=== PATIENT | male | born 1995 | race Caucasian/White ===

== ENCOUNTER 2019-03-25 03:01 | Inpatient (IN) | payer SELFPAY ==
[~2019-03-25] VITALS: Ht 165.1 cm; Wt 59.0 kg
[2019-03-25] MEDS ORDERED: NALOXONE HCL 1 MG/ML 2ML VIAL ONE (03:05)
[2019-03-25] MEDS ORDERED: ALBUTEROL (0.083%) 2.5MG/3ML NEB ONE (03:11)
[2019-03-25] MEDS ORDERED: FLUMAZENIL 0.1 MG/ML 5ML VIAL IV ONE (03:11)
[2019-03-25] MEDS ORDERED: IPRATROPIUM BROMIDE (0.02%) 0.5MG/2.5ML NEB ONE (03:12)
[2019-03-25] MEDS ORDERED: ALBUTEROL (0.083%) 2.5MG/3ML NEB HHN STA (03:16)
[2019-03-25] MEDS ORDERED: IPRATROPIUM BROMIDE (0.02%) 0.5MG/2.5ML NEB HHN STA (03:16)
[2019-03-25] MEDS ORDERED: SODIUM CHLORIDE 0.9% 1,000 ML IV ONE (03:16)
[2019-03-25] MEDS ORDERED: NALOXONE HCL 0.4 MG/ML 1ML VIAL IV PRN (03:30)
[2019-03-25] MEDS ORDERED: NALOXONE HCL 1 MG/ML 2ML VIAL IV ONE (03:30)
[2019-03-25 03:33] LABS: CHLORIDE 98 mEq/L (98-107)
[2019-03-25 03:39] LABS: BASOPHILS % 0.3 % (0.0-2.0); EOSINOPHILS % 2.4 % (0.0-5.0); ETHANOL BLOOD < 10 mg/dL; HEMATOCRIT. 42.9 % (42.0-52.0); LYMPHOCYTES % 44.3 % (20.0-50.0); MEAN CORPUSCULAR HEMOGLOBIN 30.2 pg (28.0-32.0); MEAN CORPUSCULAR VOLUME 92.5 fL (80.0-94.0); MEAN PLATELET VOLUME 8.4 fl (7.4-10.4); MONOCYTES % 4.1 % (2.0-8.0); NEUTROPHILS % 48.9 % (40.0-76.0); PLATELET 281 x1000/uL (130-400); RED BLOOD CELL COUNT 4.63 mill/uL (4.7-6.1); RED CELL DISTRIBUTION WIDTH 13.5 % (11.6-14.6)
[2019-03-25 03:40] LABS: BETA HYDROXYBUTYRATE 0.1 mMol/L (0.0-0.3)
[2019-03-25 03:52] LABS: INR 1.1; PARTIAL THROMBOPLASTIN TIME 24.3 sec (23.4-31.0)
[2019-03-25 03:56] LABS: CLARITY URINE CLEAR (CLEAR); COLOR URINE YELLOW (YELLOW); KETONES URINE NEGATIVE (NEGATIVE); LEUKOCYTE ESTERASE URINE NEGATIVE (NEGATIVE); NITRITE URINE NEGATIVE (NEGATIVE); OCCULT BLOOD URINE NEGATIVE (NEGATIVE); PROTEIN URINE 1+ (NEGATIVE); SPECIFIC GRAVITY URINE 1.022 (1.005-1.030); UROBILINOGEN URINE 0.2 E.U./dL (0.2-1.0)
[2019-03-25 04:14] LABS: *AMPHETAMINES SCREEN URINE NEGATIVE (NEGATIVE); *BARBITURATES SCREEN URINE NEGATIVE (NEGATIVE)
[2019-03-25 04:15] LABS: *BENZODIAZEPINES SCREEN URINE PRESUMTIVE POSITIVE (NEGATIVE); *COCAINE SCREEN URINE NEGATIVE (NEGATIVE); CANNABINOID URINE SCREEN PRESUMTIVE POSITIVE (NEGATIVE); METHADONE URINE SCREEN NEGATIVE (NEGATIVE); OPIATES URINE SCREEN NEGATIVE (NEGATIVE); PHENCYCLIDINE URINE SCREEN NEGATIVE (NEGATIVE)
[2019-03-25] MEDS ORDERED: LACTULOSE 20G/30ML UDC PO NR (04:30)
[2019-03-25] MEDS ORDERED: SODIUM CHLORIDE 0.9% 1,000 ML IV NR (04:30)
[2019-03-25 09:37] VITALS: BP 106/62
[2019-03-25 09:40] VITALS: BP 123/84
[2019-03-25 12:00] VITALS: BP 107/61
[2019-03-25 14:00] VITALS: BP 113/65
== END 2019-03-25 14:05 | disposition left against medical advice (07) | DRG 52 ==
LOC: ER 03:01 → 5EST 04:27 → ENRESERV 07:05
PROVIDERS: ADMIT Internal Medicine; ATTEND Internal Medicine
DX: G92 Toxic encephalopathy (principal); F19.10 Other psychoactive substance abuse, uncomplicated; Z53.21 Procedure and treatment not carried out due to patient leaving prior to being seen by health care provider
CPT/HCPCS: 36415; 80305; 80307; 80320; 80329; 82010; 82140; 82962; 83605; 84443; 93005; 96374; 99285; J2310; J3490; J7030; J7040; J7611; G0480